=== PATIENT | female | born 1980 | race Caucasian/White ===

== ENCOUNTER 2019-01-06 13:49 | Inpatient (IN) | payer BC ==
[~2019-01-06] VITALS: Ht 172.7 cm; Wt 113.2 kg
[2019-01-06] VITALS (22 sets, daily range): BP systolic 105–148; BP diastolic 55–92; PULSE 69–90; TEMP 97.5–98.4
[2019-01-06] MEDS ORDERED: PRENATAL TABLET PO (14:05)
--- NOTE | 2019-01-06 14:10 | NUR ---
Patient ambulatory to unit accompanied by spouse. Patient was seen in office for OB appointment and has been having contractions since. Patient denies leaking of fluid, vaginal bleeding and states baby has been active. G3L2, 39.6 weeks gestation. FHR and contraction monitors placed and explained. SVE by Tanja Matos, RN -/-2, bulgy bag of haider intact. Assessment completed. Dr. Cardenas called and orders to admit patient.
[2019-01-06 14:45] LABS: BASO % 0.1 % (0.0-2.0); EOS # 0.1 (0.0-0.7); EOS % 0.5 % (0-4.0); GRAN # 8.2 (1.4-6.5); GRAN % 71.7 % (42.2-75.2); HEMOGLOBIN 12.6 g/dl (12.5-16.0); LYMPH # 2.3 (1.2-3.4); LYMPH % 19.8 % (20.0-51.0); MEAN CELL VOLUME 88 fl (80.0-100.0); MEAN CORPUSCULAR HEMOGLOBIN 29 pg (27.0-31.0); MEAN CORPUSCULAR HGB CONC 33 g/dl (33.0-37.0); MEAN PLATELET VOLUME 11.1 fl (7.4-10.4); MONO # 0.8 (0.1-0.6); MONO % 6.8 % (1.7-9.3); PLATELET COUNT 186 K/mm3 (130-400); RED BLOOD COUNT 4.32 M/mm3 (4.10-5.30); REDCELL DISTRIBUTION WIDTH-CV 13.6 % (11.5-14.5)
[2019-01-06] MEDS ORDERED: MOTRIN 800800 MG/TAB PO (17:04)
--- NOTE | 2019-01-06 17:15 | NUR ---
Pt sitting upright for epidural placement. Difficulty tracing FHR due to maternal position. RN at bedside adjusting monitors. FHR audible. 1716-Single shot performed by Ivonne Leblanc RN. No adverse effects noted. See anesthesia record. 1718-Test dose performed by Ivonne Leblanc RN. No adverse effects noted. See anesthesia record. Pt repositioned WL. Updated on POC. safety reviewed. Call light in reach. Bed locked in low position.
--- NOTE | 2019-01-06 19:00 | NUR ---
1814- Bedside report from LOULOU Mooney. at nurses station awaiting delivery. Pitocin infusing at 12mU per protocol. 1829- RN at bedside with . SVE Anterior Lip/-1 by MD. Practice push x1 attempted. Patient repositioned to sitting upright. 1831- Deceleration of FHT noted. RN and MD at bedside. SVE Complete/0 by MD. Labor room set up for delivery. Nursery RN notified. 1835- Patient begins pushing with contractions. 1842- of viable baby boy. Cord clamped and cut at perineum by MD to allow delivery of body. Cord blood obtained. Pitocin off. 1845- Spontaneous delivery of placenta. Pitocin infusing at 333ml/hr per protocol. Fundus massaged to firm by MD. Bladder drained by MD. Perineum intact. Pericare provided. Ice pack applied. 1899- IV infusing Pitocin infiltrated. IV stopped. IV attempted x2 by Zara,LOULOU and x2 by Mehul,LOULOU. Unable to re-establish IV site. See Physician Notification. Methergine 0.2mg IM given. See eMAR.
[2019-01-07] VITALS: BP 123/70; PULSE 75; TEMP 98.1
[2019-01-07 04:00] VITALS: BP 120/68; PULSE 67; TEMP 97.7
[2019-01-07 07:15] VITALS: BP 119/70; PULSE 64; TEMP 97.2
[2019-01-07 11:25] VITALS: BP 112/74; PULSE 66; TEMP 98.4
[2019-01-07 16:07] VITALS: BP 126/74; PULSE 70; TEMP 97.5
[2019-01-07 20:50] VITALS: BP 119/62; PULSE 65; TEMP 98.9
--- NOTE | 2019-01-07 21:00 | NUR ---
Pt and spouse watch depression DVD, handouts given
[2019-01-08 07:50] VITALS: BP 128/78; PULSE 86; TEMP 97.5
--- NOTE | 2019-01-08 09:05 | NUR ---
Patient given discharge instructions. Reviewed education and warning signs. Patient denies questions. Escorted off unit with infant and .
== END 2019-01-08 09:05 | disposition home or self-care (01) | DRG 807 ==
LOC: LDRO 13:49 → LDR 14:09 → OB 21:00
PROVIDERS: ADMIT Obstetrics & Gynecology
PROC: 10E0XZZ Delivery of Products of Conception, External Approach (ICD-10-PCS; principal; 2019-01-06)
PROC: 10907ZC Drainage of Amniotic Fluid, Therapeutic from Products of Conception, Via Natural or Artificial Opening (ICD-10-PCS; 2019-01-06)
DX: O61.9 Failed induction of labor, unspecified (principal); Z37.0 Single live birth; O99.214 Obesity complicating childbirth; Z3A.37 37 weeks gestation of pregnancy
CPT/HCPCS: J2210; J2590; J2795; J7120

== ENCOUNTER → 2020-12-02 | Outpatient (CLI) | payer BC ==
[~2020-12-02] MED LIST: MOTRIN 800800 MG/TAB PO; PRENATAL TABLET PO
== END ==
LOC: MC.RAD 08:42
DX: N60.01 Solitary cyst of right breast (principal)

== ENCOUNTER → 2022-01-07 | Outpatient (CLI) | payer BC | LOC: MC.RAD 14:46 | DX: Z12.31 Encounter for screening mammogram for malignant neoplasm of breast (principal) ==

== ENCOUNTER → 2023-03-18 | Outpatient (CLI) | payer BC | LOC: MC.RAD 11:01 | DX: Z12.31 Encounter for screening mammogram for malignant neoplasm of breast (principal) ==